=== PATIENT | male | born 1975 | race Caucasian/White ===

== ENCOUNTER → 2018-01-30 | Outpatient (CLI) | payer BC ==
[2018-01-30 16:10] LABS: PROTHROMBIN TIME PATIENT 12.4 SEC (11.7-14.0)
[2018-01-30 16:12] LABS: AMPHETAMINE/METHAMPHETAMINE NEG (NEG); BARBITURATES NEG (NEG); BENZODIAZEPINES NEG (NEG); CANNABINOIDS NEG (NEG); COCAINE NEG (NEG); METHADONE NEG (NEG); OPIATES NEG (NEG); PHENCYCLIDINE NEG (NEG)
[2018-01-30 16:16] LABS: CREATININE 0.9 mg/dL (0.7-1.3); GFR 92.1
== END | disposition home or self-care (01) ==
LOC: LAB 15:26
PROVIDERS: ATTEND Psychiatry & Neurology Neurology
DX: G35 Multiple sclerosis (principal); I67.7 Cerebral arteritis, not elsewhere classified
CPT/HCPCS: 36415; 80307; 82306; 82565; 82607; 84443; 84450; 84460; 84520; 85610; G0479

== ENCOUNTER → 2018-02-11 | Outpatient (CLI) | payer BC ==
[~2018-02-11] MED LIST: GADOBUTROL 7.5 MMOL/7.5 ML VIAL IV ONE
--- NOTE | 2018-02-11 10:24 | RAD ---
MRA Brain History:Cerebral vasculitis, dizziness for 3 months, syncopal episodes, history of multiple sclerosis Technique: 3-D [id number] MR angiography was performed of the brain. Comparison: None Contrast: None Findings: Determination of any degree of stenosis is based on NASCET criteria. There is some motion degradation. Region of PICAs and intradural vertebral arteries was not fully included on this exam. There is visualization of the basilar artery and segments bilateral PICAs. AICA is are not well visualized on this exam. There is visualization of bilateral superior cerebellar arteries and small posterior communicating arteries. There is patent anterior communicating artery. Impression: 1. No significant intracranial stenosis or aneurysm is identified. Electronically signed by: Jeovany Mar MD (02/11/2018 10:20 AM) [id number]
--- NOTE | 2018-02-12 16:14 | RAD ---
MRI Brain with and without contrast History:CEREBRAL VASCULITIS, dizziness for 3 months, syncopal episodes, history of multiple sclerosis Technique: Multiplanar, multi sequential pre and postcontrast MR imaging was performed of the brain. Contrast: 12 cc Gadavist Comparison: January 19, 2018 Findings: There is no evidence of recent infarct or cytotoxic edema. The ventricles, sulci, and cisterns are within normal limits in size and configuration. There is no significant midline shift, intraaxial mass effect, or focal abnormal extra-axial fluid collection. There are again several foci of T2 and FLAIR hyperintense abnormality of the supratentorial periventricular white matter bilaterally, some of which have a perpendicular orientation relative to the lateral ventricles. Overall extent of signal abnormality is similar. There is small focus of enhancement associated with the small FLAIR hyperintense lesion of the right parietal deep white matter, focus of enhancement present previously. There is preservation of the major intracranial flow-voids at the skull base. The cerebellar tonsils are normal in location. There is no significant abnormality of the pineal gland or pituitary gland. There is mild right sphenoid sinus mucosal thickening, also right greater than left maxillary sinus mucosal thickening and patchy bilateral ethmoid air cell and very minimal frontal sinus mucosal thickening. The mastoid air cells are aerated. There is preserved marrow signal of the clivus. Impression: 1. There is no evidence of recent infarct. There is again scattered T2 and FLAIR hyperintense abnormality of the supratentorial white matter, evidence of inflammatory demyelinating disease. There is again small focus of enhancement associated with small FLAIR hyperintense lesion of the right parietal white matter. 2. There is mild paranasal sinus mucosal thickening as stated. Electronically signed by: Jeovany Mar MD (02/12/2018 4:11 PM) [id number]
== END | disposition home or self-care (01) ==
LOC: MRI 08:29
PROVIDERS: ATTEND Psychiatry & Neurology Neurology
DX: I67.7 Cerebral arteritis, not elsewhere classified (principal); Z86.69 Personal history of other diseases of the nervous system and sense organs
CPT/HCPCS: 70544; 70553; A9585

== ENCOUNTER → 2018-02-21 | Outpatient (CLI) | payer BC ==
[~2018-02-21] MED LIST changes: +GADOBUTROL 10 MMOL/10 ML VIAL IV ONE; -GADOBUTROL 7.5 MMOL/7.5 ML VIAL IV ONE; +LISI30TA4 PO
--- NOTE | 2018-02-21 12:01 | [facility] ---
MRI Cervical Spine with and without contrast History: Multiple sclerosis, visual changes, numbness in the upper extremities bilaterally Technique: Multiplanar, multi sequential pre and postcontrast MR imaging was performed of the cervical spine. Contrast: 12 cc Gadavist Comparison: None Findings: Exam is degraded by motion even for repeated sequences. There is mild increased linear T2 signal in the region of the central canal with cord such as at C6-7 to C7-T1. Otherwise there is no convincing defined cervical cord signal abnormality. There is no convincing enhancement of the cervical cord. Cervical vertebral body stature and AP alignment are maintained. There is moderate degenerative disc disease at C5-6 and C6-7 and to a somewhat lesser degree at C4-5, minimally at C3-4. There is trace C5-C6 endplate edema likely reactive/degenerative in etiology. There is mild cervical levoscoliosis. C2-C3: Neural foramina and spinal canal are adequate. C3-C4: There is minimal disc osteophyte complex. Spinal canal and neural foramina are adequate. C4-C5: There is negligible disc osteophyte complex. Spinal canal and neural foramina are adequate. C5-C6: There is disc osteophyte complex and bulge, mild indentation upon the ventral thecal sac somewhat greater in the left lateral recess. Central canal is borderline about 10 mm, mild left lateral recess stenosis. There is left uncovertebral degenerative change. There is probable moderate narrowing of the left neural foramen although difficult to characterize due to motion. Right neural foramen is adequate. C6-C7: There is minimal disc osteophyte complex and bulge. Central canal is adequate. There is left uncovertebral degenerative change. There is probable mild narrowing of the left neural foramen, right neural foramen adequate. C7-T1: Spinal canal and neural foramina are adequate. Impression: 1. Exam is degraded by motion even for repeated sequences. There is mild left lateral recess stenosis C5-6. There is multilevel [id number] degenerative disc disease greatest C5-6 and C6-7 and to lesser degree at C3-4 and C4-5. There is multilevel mild spondylosis. Accurate evaluation of the neural foramina is limited due to motion, probable moderate narrowing on the left at C5-C6 and to lesser degree at C6-7 due to facet and uncovertebral degenerative change. 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 Electronically signed by: Jeovany Mar MD (02/21/2018 11:58 AM) [id number]
== END | disposition home or self-care (01) ==
LOC: KCIC MRI 10:08
PROVIDERS: ATTEND Psychiatry & Neurology Neurology
DX: M50.31 Other cervical disc degeneration, high cervical region (principal); M48.02 Spinal stenosis, cervical region; M47.892 Other spondylosis, cervical region; M25.78 Osteophyte, vertebrae
CPT/HCPCS: 72156; A9585

== ENCOUNTER → 2018-02-21 | Outpatient (CLI) | payer BC ==
[~2018-02-21] MED LIST changes: -GADOBUTROL 10 MMOL/10 ML VIAL IV ONE
[2018-02-21 09:30] LABS: BASO % 1 % (0-3); EOS # 0.2 x10^3/uL (0.0-0.7); EOS % 2 % (0-3); HEMATOCRIT 44.2 % (39.0-53.0); HEMOGLOBIN 15.4 g/dL (13.0-17.5); LYMPH # 2.6 x10^3/uL (1.0-4.8); LYMPH % 36 % (24-48); MEAN CORPUSCULAR HEMOGLOBIN 30 pg (25-35); MEAN CORPUSCULAR HGB CONC 35 g/dL (31-37); MEAN CORPUSCULAR VOLUME 86 fL (79-100); MONO # 0.4 x10^3/uL (0.0-1.1); MONO % 6 % (0-9); NEUT # 4.1 x10^3uL (1.8-7.7); NEUT % 55 % (31-73); PLATELET COUNT 267 x10^3/uL (140-400); RED BLOOD COUNT 5.17 x10^6/uL (4.30-5.70); RED CELL DISTRIBUTION WIDTH 13.5 % (11.5-14.5); WHITE BLOOD COUNT 7.4 x10^3/uL (4.0-11.0)
[2018-02-21 09:50] LABS: CHOLESTEROL/HDL RATIO 4.3
[2018-02-27 12:16] LABS: ANA INTERP Negative (.)
== END | disposition home or self-care (01) ==
LOC: LAB 08:45
PROVIDERS: ATTEND Psychiatry & Neurology Neurology
DX: G35 Multiple sclerosis (principal); Z86.69 Personal history of other diseases of the nervous system and sense organs
CPT/HCPCS: 36415; 80061; 85025; 86038; 86141

== ENCOUNTER → 2018-04-19 | Outpatient (CLI) | payer BC ==
[2018-04-19 09:14] LABS: PROTHROMBIN TIME PATIENT 12.4 SEC (11.7-14.0)
== END | disposition home or self-care (01) ==
LOC: LAB 08:42
PROVIDERS: ATTEND Psychiatry & Neurology Neurology
DX: G35 Multiple sclerosis (principal)
CPT/HCPCS: 36415; 85049; 85610

== ENCOUNTER → 2018-04-29 | Outpatient (CLI) | payer BC ==
[~2018-04-29] MED LIST changes: +LIDOCAINE WITH 8.4% SOD BICARB 3 ML DISP.SYRIN. INJ ONE
[2018-04-29 10:20] VITALS: BP 140/64
--- NOTE | 2018-04-29 11:00 | RAD ---
Fluoroscopically guided lumbar puncture, 04/29/2018: History: Multiple sclerosis Under local anesthesia, aseptic conditions and fluoroscopic guidance a lumbar puncture was performed at the L2-3 level utilizing a 20-gauge spinal needle. The opening pressure was measured at 12 cm of water. A total of 5-6 cc of CSF was removed and sent to the lab for appropriate studies. Due to the thickness of the patient's back, needle position was lost near the end of the exam. The needle was removed and hemostasis obtained. If subsequent lumbar punctures are indicated, an extra long spinal should be utilized in this patient. 1.7 minutes of fluoroscopy time was utilized. 3 fluoroscopic spot images were recorded. The patient tolerated the procedure well. He will be monitored in the department for several hours and then discharged if no problems.
[2018-04-29 11:50] LABS: PROTHROMBIN TIME PATIENT 12.4 SEC (11.7-14.0)
[2018-04-29 11:51] LABS: CSF CLARITY CLEAR; CSF COLOR COLORLESS; CSF RBC COUNT 37; CSF WBC COUNT 1
[2018-04-29 12:00] LABS: CSF PROTEIN 53.8 mg/dL (15.0-45.0)
[2018-05-01 12:18] LABS: ALBUMIN,CSF 34 mg/dL (11-48); ALBUMIN,SERUM 4.5 g/dL (3.5-5.5); CSF IGG INDEX 1.1 (0.0-0.7); IGG,SERUM 751 mg/dL (700-1600)
[2018-05-01 13:22] LABS: WEST NILE IGG CSF Positive (Negative); WEST NILE IGM CSF Negative (Negative)
[2018-05-01 20:13] LABS: HERPES SIMPLEX TYPE 1 Negative (Negative); HERPES SIMPLEX TYPE 2 Negative (Negative)
[2018-05-02 15:35] LABS: MYELIN BASIC PROTEIN 3.3 ng/mL (0.0-1.2)
== END | disposition home or self-care (01) ==
LOC: RAD 08:51
PROVIDERS: ATTEND Psychiatry & Neurology Neurology
DX: G35 Multiple sclerosis (principal); I10 Essential (primary) hypertension
CPT/HCPCS: 62270; 82787; 82945; 83873; 83916; 84157; 85049; 85610; 86788; 86789; 87071; 87075; 87102; 87252; 87529; 89051

== ENCOUNTER → 2018-05-06 | Outpatient (CLI) | payer BC ==
[2018-04-29 10:20] VITALS: BP 140/64
[~2018-05-06] MED LIST changes: -LIDOCAINE WITH 8.4% SOD BICARB 3 ML DISP.SYRIN. INJ ONE
[2018-05-08 12:18] LABS: WEST NILE IGG Negative (Negative); WEST NILE IGM Negative (Negative)
[2018-05-08 17:15] LABS: ANA INTERP Negative (.)
== END | disposition home or self-care (01) ==
LOC: LINQ 11:44
PROVIDERS: ATTEND Psychiatry & Neurology Neurology
DX: A92.31 West Nile virus infection with encephalitis (principal)
CPT/HCPCS: 36415; 86038; 86788; 86789